=== PATIENT | female | born 1975 | race Caucasian/White ===

== ENCOUNTER 2017-02-14 12:32 | Observation (INO) | payer MEDICAID, SELFPAY ==
[2017-02-14] VITALS (8 sets, daily range): BP systolic 85–143; BP diastolic 56–104; PULSE 67–84; RESP 16–20; TEMP 36.5–37; O2SAT 99–100; BMI 19.0; BMI 19.1
--- NOTE | 2017-02-14 14:02 | ED.VISSUMM ---
- ER Visit Summary Date of Service: 02/14/17 Chief Complaint: Sent from [facility] for medical clearance History of Present Illness: The patient is a 41 F history of IV drug use who presents because of wound to the lateral proximal right arm. Patient states this is secondary to IV drug use. She states she put a napkin on the wound which then broke down. She presently denies fever, chills or night sweats. She denies drainage from the area. She denies any symptoms whatsoever Physical Examination: She has a large area of skin breakdown that is healing by secondary intention. There is granulation tissue noted which is dry. There is no warmth, induration, fluctuance, lymphangitis or axillary lymphadenopathy. Heart is regular with a normal S1 and S2. There is no murmur, gallop or rub. Lungs are clear to auscultation with good movement of air bilaterally. There is no egophony. Breath sounds are symmetric. Test Results: No tests were obtained, nor were any tests indicated Emergency Department Course and Treatment: Shari from [facility] was contacted as requested by triage note. She states she will get patient and take her to [facility] for detox Treatment Plan: Medically cleared for inpatient treatment of IV drug use Disposition: Discharge from ER to [facility] Impression: 1. Wound right arm healing by secondary intention without evidence of infection 2. History of IV drug use ED Disposition - Plan for ED Patient: Disposition: Home or Assisted Living Chief Complaint: Wound Check Instructions: ED Screening Exam Medical Nonurgent Referrals: Care Physician,No Primary [Primary Care Provider] -
--- NOTE | 2017-02-14 14:07 | ED.DCSUM_ITS ---
- ER Visit Summary Date of Service: 02/14/17 Chief Complaint: Sent from [facility] for medical clearance History of Present Illness: The patient is a 41 F history of IV drug use who presents because of wound to the lateral proximal right arm. Patient states this is secondary to IV drug use. She states she put a napkin on the wound which then broke down. She presently denies fever, chills or night sweats. She denies drainage from the area. She denies any symptoms whatsoever Physical Examination: She has a large area of skin breakdown that is healing by secondary intention. There is granulation tissue noted which is dry. There is no warmth, induration, fluctuance, lymphangitis or axillary lymphadenopathy. Heart is regular with a normal S1 and S2. There is no murmur, gallop or rub. Lungs are clear to auscultation with good movement of air bilaterally. There is no egophony. Breath sounds are symmetric. Test Results: No tests were obtained, nor were any tests indicated Emergency Department Course and Treatment: Shrai from [facility] was contacted as requested by triage note. She states she will get patient and take her to [facility] for detox Treatment Plan: Medically cleared for inpatient treatment of IV drug use Disposition: Discharge from ER to [facility] Impression: 1. Wound right arm healing by secondary intention without evidence of infection 2. History of IV drug use ED Disposition - Plan for ED Patient: Disposition: Home or Assisted Living Chief Complaint: Wound Check Instructions: ED Screening Exam Medical Nonurgent Referrals: Care Physician,No Primary [Primary Care Provider] -
[2017-02-14] MEDS: Buprenorphine HCl 2 MG TAB.SUBL SL (16:58)
[2017-02-14] MEDS: chlordiazePOXIDE 25 MG Capsule PO ×2 (16:59→20:08)
[2017-02-14] MEDS: cloNIDine HCl 0.1 MG Tablet 0.2 MG PO (17:01)
[2017-02-14] MEDS: Carbidopa/Levodopa 25/100 Tablet PO (18:40)
[2017-02-14] MEDS: QUEtiapine 25 MG Tablet PO (18:40)
[2017-02-14] MEDS: Methocarbamol 750 MG Tablet PO (18:40)
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
[2017-02-15 00:20] VITALS: BP 83/54; PULSE 69; RESP 16; TEMP 36.6
[2017-02-15] MEDS: chlordiazePOXIDE 25 MG Capsule PO ×5 (00:22→21:39)
[2017-02-15] MEDS: Buprenorphine HCl 2 MG TAB.SUBL SL ×4 (00:22→23:35)
[2017-02-15 04:00] VITALS: BP 86/55; PULSE 73; RESP 16; TEMP 36.4
[2017-02-15] MEDS: Methocarbamol 750 MG Tablet PO ×4 (04:06→21:39)
[2017-02-15] MEDS: Carbidopa/Levodopa 25/100 Tablet PO ×2 (04:06→15:57)
[2017-02-15] MEDS: Ondansetron ODT 4 MG Tablet PO (04:06)
[2017-02-15 09:10] VITALS: BP 93/61; PULSE 66; RESP 18; TEMP 36.8
--- NOTE | 2017-02-15 09:32 | PCM.PROGNOTE ---
Subjective: She is feeling well this morning. C/O toothache. - Physical Exam General: Alert, Oriented x3, Cooperative, No apparent distress HEENT: Atraumatic, Normocephalic Oral: Moist Mucosa, No Gingival or Mucosal Lesions/ Ulcerations Neck: Supple, No JVD Lungs: Clear to auscultation, Normal air movement, No rhonchi, No wheeze, No rales Cardiovascular: Regular rate, Regular Rhythm, Normal S1, Normal S2, No murmurs Abdomen: Bowel Sounds Present, Soft, Non Tender, Non-Distended, No Hepato-splenomegaly Extremities: No clubbing, No cyanosis, No edema Skin: Ulcer/ Wound - triangular full thickness skin loss at right upper arm atnerolaterally, 5 x 3 cm. Extensive scarring surrounding area. Left upper arm with no ulceration, but has extensive scarring in the same level. Musculoskeletal: No Tenderness to Palpation of Joints or Extremities, Cachexia, Muscle Wasting Lymphatic: No Cervical, Supraclavicular, or Inguinal Adenopathy Neurological: Cranial nerves II-XII grossly intact, Neuro grossly intact Psych/Mental Status: Alert and oriented to time, place, person, mood and affect Vital Signs Temp Pulse Resp BP Pulse Ox 98.3 F 66 18 93/61 100 02/15/17 09:10 02/15/17 09:10 02/15/17 09:10 02/15/17 09:10 02/14/17 20:00 Oxygen Delivery Method Room Air Weight: 111 lb Body Mass Index (BMI) 19.0 Intake and Output for Last 24 Hours 02/13/17 02/14/17 02/15/17 23:59 23:59 23:59 Intake Total 300 800 Balance 300 800 Active Medications Acetaminophen (Tylenol) 650 mg PO Q4H PRN PRN PRN Reason: Temp>99.1F Last Admin: 02/15/17 09:34 Dose: 650 mg Buprenorphine HCl (Buprenorphine Hcl) 4 mg SL Q8H MIRYAM PRN Reason: Taper Stop: 02/17/17 19:59 Last Admin: 02/15/17 09:35 Dose: 4 mg Carbidopa/Levodopa (Sinemet) 1 tablet PO Q8H PRN PRN PRN Reason: RESTLESSNESS Last Admin: 02/15/17 04:06 Dose: 1 tablet Chlordiazepoxide (Librium) 25 mg PO Q6H PRN PRN PRN Reason: Mod-Sev Anxiety (score 2-3/3) Chlordiazepoxide (Librium) 25 mg PO Q4H [facility] Stop: 02/15/17 12:01 Last Admin: 02/15/17 09:35 Dose: 25 mg Clonidine (Catapres) 0.1 mg PO Q2H PRN PRN Reason: Hot/Cold Sweats or Anxiety Dicyclomine HCl (Bentyl) 20 mg PO Q6H PRN PRN PRN Reason: Abdomnial Discomfort Duloxetine HCl (Cymbalta) 30 mg PO DAILY [facility] Last Admin: 02/15/17 09:35 Dose: 30 mg Hydroxyzine Pamoate (Vistaril) 50 mg PO Q6H PRN PRN PRN Reason: Mild Anxiety (score 1/3) Influenza Virus Vaccine Quadrival (Fluarix/Fluzone) 0.5 ml IM .ONCE ONE Stop: 02/15/17 10:01 Last Admin: 02/15/17 09:35 Dose: 0.5 ml Lidocaine HCl (Xylocaine Viscous) 1 ml PO Q1H PRN PRN Reason: PAIN Loperamide HCl (Imodium) 2 - 4 mg PO UD PRN PRN Reason: LOOSE STOOLS Methocarbamol (Methocarbamol) 750 mg PO 4X/DAY PRN PRN Reason: Muscle Aches Last Admin: 02/15/17 09:35 Dose: 750 mg Nicotine (Nicoderm Cq (Pbkc)) 21 mg TRANSDERM. DAILY [facility] Last Admin: 02/15/17 09:36 Dose: 21 mg Ondansetron HCl (Zofran Odt) 4 mg PO Q6H PRN PRN PRN Reason: NAUSEA Last Admin: 02/15/17 04:06 Dose: 4 mg Quetiapine Fumarate (Seroquel) 25 mg PO Q6H PRN PRN PRN Reason: Moderate Anxiety (score 2/3) Last Admin: 02/14/17 18:40 Dose: 25 mg Trazodone HCl (Desyrel) 100 mg PO QHS [facility] Last Admin: 02/14/17 22:20 Dose: 100 mg Assessment/Plan The patient is a 41 year old F who was admitted into the medical stabilization program at [place] for acute opiate withdrawal. Patient uses injectable heroin since 2005, she has been through narcotics detox 4 times, the last time October 27 of this year. Patient last used heroin yesterday, she complained of muscle cramps, jitteriness, sweating, and nausea. She denied any chest pain or shortness of breath. #1 acute opioid withdrawal. patient was admitted into the medical stabilization program at [place], orders were placed per medical stabilization protocol orders #2 opioid addiction heroin #3 Full thickness skin loss, right upper arm. She had been skin / muscle popping (subcutaneous / intramuscular injection). Full thickness skin loss may occur with infection, or due to the type of substance i.e. cocaine or any possible abrasive chemical that used to to cut heroin with. She probably need skin graft in the future. Meanwhile, continue wound care. Consult wound care nurse. VTE prophylaxis: early ambulation. GI prophylaxis: Regular consistency meal. Patient is full code. Disposition: [facility] follow up.
[2017-02-15] MEDS: Acetaminophen 325 MG Tablet 650 MG PO ×3 (09:34→21:39)
[2017-02-15] MEDS: DULoxetine Hcl 30 MG Capsule PO (09:35)
--- NOTE | 2017-02-15 09:47 | PN_ITS ---
Subjective: She is feeling well this morning. C/O toothache. - Physical Exam General: Alert, Oriented x3, Cooperative, No apparent distress HEENT: Atraumatic, Normocephalic Oral: Moist Mucosa, No Gingival or Mucosal Lesions/ Ulcerations Neck: Supple, No JVD Lungs: Clear to auscultation, Normal air movement, No rhonchi, No wheeze, No rales Cardiovascular: Regular rate, Regular Rhythm, Normal S1, Normal S2, No murmurs Abdomen: Bowel Sounds Present, Soft, Non Tender, Non-Distended, No Hepato- splenomegaly Extremities: No clubbing, No cyanosis, No edema Skin: Ulcer/ Wound - triangular full thickness skin loss at right upper arm atnerolaterally, 5 x 3 cm. Extensive scarring surrounding area. Left upper arm with no ulceration, but has extensive scarring in the same level. Musculoskeletal: No Tenderness to Palpation of Joints or Extremities, Cachexia, Muscle Wasting Lymphatic: No Cervical, Supraclavicular, or Inguinal Adenopathy Neurological: Cranial nerves II-XII grossly intact, Neuro grossly intact Psych/Mental Status: Alert and oriented to time, place, person, mood and affect Vital Signs Temp Pulse Resp BP Pulse Ox 98.3 F 66 18 93/61 100 02/15/17 09:10 02/15/17 09:10 02/15/17 09:10 02/15/17 09:10 02/14/17 20:00 Oxygen Delivery Method Room Air Weight: 111 lb Body Mass Index (BMI) 19.0 Intake and Output for Last 24 Hours 02/13/17 02/14/17 02/15/17 23:59 23:59 23:59 Intake Total 300 800 Balance 300 800 Active Medications Acetaminophen (Tylenol) 650 mg PO Q4H PRN PRN PRN Reason: Temp>99.1F Last Admin: 02/15/17 09:34 Dose: 650 mg Buprenorphine HCl (Buprenorphine Hcl) 4 mg SL Q8H [facility] PRN Reason: Taper Stop: 02/17/17 19:59 Last Admin: 02/15/17 09:35 Dose: 4 mg Carbidopa/Levodopa (Sinemet) 1 tablet PO Q8H PRN PRN PRN Reason: RESTLESSNESS Last Admin: 02/15/17 04:06 Dose: 1 tablet Chlordiazepoxide (Librium) 25 mg PO Q6H PRN PRN PRN Reason: Mod-Sev Anxiety (score 2-3/3) Chlordiazepoxide (Librium) 25 mg PO Q4H [facility] Stop: 02/15/17 12:01 Last Admin: 02/15/17 09:35 Dose: 25 mg Clonidine (Catapres) 0.1 mg PO Q2H PRN PRN Reason: Hot/Cold Sweats or Anxiety Dicyclomine HCl (Bentyl) 20 mg PO Q6H PRN PRN PRN Reason: Abdomnial Discomfort Duloxetine HCl (Cymbalta) 30 mg PO DAILY [facility] Last Admin: 02/15/17 09:35 Dose: 30 mg Hydroxyzine Pamoate (Vistaril) 50 mg PO Q6H PRN PRN PRN Reason: Mild Anxiety (score 1/3) Influenza Virus Vaccine Quadrival (Fluarix/Fluzone) 0.5 ml IM .ONCE ONE Stop: 02/15/17 10:01 Last Admin: 02/15/17 09:35 Dose: 0.5 ml Lidocaine HCl (Xylocaine Viscous) 1 ml PO Q1H PRN PRN Reason: PAIN Loperamide HCl (Imodium) 2 - 4 mg PO UD PRN PRN Reason: LOOSE STOOLS Methocarbamol (Methocarbamol) 750 mg PO 4X/DAY PRN PRN Reason: Muscle Aches Last Admin: 02/15/17 09:35 Dose: 750 mg Nicotine (Nicoderm Cq (Pbkc)) 21 mg TRANSDERM. DAILY [facility] Last Admin: 02/15/17 09:36 Dose: 21 mg Ondansetron HCl (Zofran Odt) 4 mg PO Q6H PRN PRN PRN Reason: NAUSEA Last Admin: 02/15/17 04:06 Dose: 4 mg Quetiapine Fumarate (Seroquel) 25 mg PO Q6H PRN PRN PRN Reason: Moderate Anxiety (score 2/3) Last Admin: 02/14/17 18:40 Dose: 25 mg Trazodone HCl (Desyrel) 100 mg PO QHS [facility] Last Admin: 02/14/17 22:20 Dose: 100 mg Assessment/Plan The patient is a 41 year old F who was admitted into the medical stabilization program at [facility] for acute opiate withdrawal. Patient uses injectable heroin since 2005, she has been through narcotics detox 4 times , the last time October 27 of this year. Patient last used heroin yesterday, she complained of muscle cramps, jitteriness, sweating, and nausea. She denied any chest pain or shortness of breath. #1 acute opioid withdrawal. patient was admitted into the medical stabilization program at [facility], orders were placed per medical stabilization protocol orders #2 opioid addiction heroin #3 Full thickness skin loss, right upper arm. She had been skin / muscle popping (subcutaneous / intramuscular injection). Full thickness skin loss may occur with infection, or due to the type of substance i.e. cocaine or any possible abrasive chemical that used to to cut heroin with. She probably need skin graft in the future. Meanwhile, continue wound care. Consult wound care nurse. VTE prophylaxis: early ambulation. GI prophylaxis: Regular consistency meal. Patient is full code. Disposition: [facility] follow up.
--- NOTE | 2017-02-15 10:30 | NURSING ---
wound photo: right upper arm
[2017-02-15 15:54] VITALS: BP 90/56; PULSE 67; RESP 18; TEMP 36.4
[2017-02-15] MEDS: Dicyclomine 10 MG Capsule 20 MG PO (16:00)
[2017-02-15] MEDS: QUEtiapine 25 MG Tablet PO (21:39)
[2017-02-15 21:41] VITALS: BP 90/51; PULSE 60; RESP 18; TEMP 36.4
[2017-02-16 08:48] VITALS: BP 104/54; PULSE 60; RESP 18; TEMP 36.4
[2017-02-16] MEDS: Methocarbamol 750 MG Tablet PO ×3 (09:01→23:39)
[2017-02-16] MEDS: DULoxetine Hcl 30 MG Capsule PO (09:01)
[2017-02-16] MEDS: Carbidopa/Levodopa 25/100 Tablet PO ×2 (09:01→23:38)
[2017-02-16] MEDS: Buprenorphine HCl 2 MG TAB.SUBL SL ×2 (09:01→20:56)
[2017-02-16] MEDS: Acetaminophen 325 MG Tablet 650 MG PO ×2 (09:01→14:46)
[2017-02-16 14:37] VITALS: BP 97/65; PULSE 74; RESP 20; TEMP 36.7
[2017-02-16] MEDS: chlordiazePOXIDE 25 MG Capsule PO (14:45)
[2017-02-16] MEDS: QUEtiapine 25 MG Tablet PO ×2 (14:45→23:38)
[2017-02-16] MEDS: Dicyclomine 10 MG Capsule 20 MG PO (14:52)
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
--- NOTE | 2017-02-16 16:57 | PCM.PROGNOTE ---
Subjective: She feels well today. No complains. Objective: - Physical Exam General: Alert, Oriented x3, Cooperative, No apparent distress HEENT: Atraumatic, Normocephalic Oral: Moist Mucosa, No Gingival or Mucosal Lesions/ Ulcerations Neck: Supple, No JVD Lungs: Clear to auscultation, Normal air movement, No rhonchi, No wheeze, No rales Cardiovascular: Regular rate, Regular Rhythm, Normal S1, Normal S2, No murmurs Abdomen: Bowel Sounds Present, Soft, Non Tender, Non-Distended, No Hepato-splenomegaly Extremities: No clubbing, No cyanosis, No edema Skin: Ulcer/ Wound - triangular full thickness skin loss at right upper arm atnerolaterally, 5 x 3 cm. Extensive scarring surrounding area. Left upper arm with no ulceration, but has extensive scarring in the same level. Musculoskeletal: No Tenderness to Palpation of Joints or Extremities, Cachexia, Muscle Wasting Lymphatic: No Cervical, Supraclavicular, or Inguinal Adenopathy Neurological: Cranial nerves II-XII grossly intact, Neuro grossly intact Psych/Mental Status: Alert and oriented to time, place, person, mood and affect - Physical Exam Vital Signs Temp Pulse Resp BP Pulse Ox 98.0 F 74 20 97/65 100 02/16/17 14:37 02/16/17 14:37 02/16/17 14:37 02/16/17 14:37 02/14/17 20:00 Oxygen Delivery Method Room Air Weight: 111 lb 0.009 oz Body Mass Index (BMI) 19.0 Intake and Output for Last 24 Hours 02/14/17 02/15/17 02/16/17 23:59 23:59 23:59 Intake Total 300 800 Balance 300 800 Assessment/Plan The patient is a 41 year old F who was admitted into the medical stabilization program at [facility] for acute opiate withdrawal. Patient uses injectable heroin since 2005, she has been through narcotics detox 4 times, the last time October 27 of this year. Patient last used heroin yesterday, she complained of muscle cramps, jitteriness, sweating, and nausea. She denied any chest pain or shortness of breath. #1 acute opioid withdrawal. patient was admitted into the medical stabilization program at [facility], orders were placed per medical stabilization protocol orders Anticipated discharge date on 02/17/17. She will go to [facility] outpatient at [place] right after discharge. #2 opioid addiction heroin #3 Full thickness skin loss, right upper arm. She had been skin / muscle popping (subcutaneous / intramuscular injection). Full thickness skin loss may occur with infection, or due to the type of substance i.e. cocaine or any possible abrasive chemical that used to to cut heroin with. She probably need skin graft in the future. Meanwhile, continue wound care. Consult wound care nurse. VTE prophylaxis: early ambulation. GI prophylaxis: Regular consistency meal. Patient is full code. Disposition: [facility] follow up.
[2017-02-16 20:59] VITALS: BP 97/51; PULSE 73; RESP 18; TEMP 37.1
--- NOTE | 2017-02-16 23:40 | NURSING ---
methocarbamol given for pain. sinement given for restlessness. seroquel given for anxiety.
[2017-02-17] MEDS: Methocarbamol 750 MG Tablet PO (05:15)
[2017-02-17 05:16] VITALS: BP 92/53; PULSE 73; RESP 18; TEMP 36.4
[2017-02-17] MEDS: DULoxetine Hcl 30 MG Capsule PO (07:49)
[2017-02-17] MEDS: Buprenorphine HCl 2 MG TAB.SUBL SL (07:49)
[2017-02-17] MEDS: chlordiazePOXIDE 25 MG Capsule PO (07:49)
--- NOTE | 2017-02-17 11:19 | PCM.DC ---
- Discharge Diagnoses Reason(s) for Visit for Discharge Instructions: Heroin withdrawal You will use the following diet at home:: No restrictions Instructions: ED Screening Exam Medical Nonurgent Allergies/Adverse Reactions: Allergies ibuprofen Allergy (Verified 02/14/17 12:36) Hives morphine Allergy (Verified 02/14/17 12:36) Hives Medications to take at Discharge Duloxetine Hcl [Cymbalta] 30 mg PO DAILY #30 02/17/17 Trazodone HCl 100 mg PO QHS #30 02/17/17 The following prescriptions were given: Duloxetine Hcl [Cymbalta] 30 mg PO DAILY #30 Trazodone HCl 100 mg PO QHS #30 Primary Care Physician: Care Physician,No Primary [Primary Care Provider] - Please follow up with your Primary Care Physician in: Need to establish PCP. Please Follow Up With: [facility] When: Today.
--- NOTE | 2017-02-17 11:24 | PCM.DC.SUM ---
Discharge Date and Diagnosis - Problem List Patient Problems: Active and Suspected Problems Opiate withdrawal (Acute) Skin ulcer (Acute) Date of Admission: 02/14/17 Date of Discharge: 02/17/17 - Primary Discharge Diagnosis Acute Opioid withdrawal. Opioid addiction with heroin. Full thickness skin loss right upper arm. Hospital Course and Treatment Imaging Results: None. Consultations 02/15/17 09:46 Consult: Onc/Wound/director of physical security Routine Comment: Reason for Consult:: right arm wound [facility]. Operations: None Procedures: None Summary of Care Provided: The patient is a 41 year old F who was admitted into the medical stabilization program at [facility] for acute opiate withdrawal. Patient uses injectable heroin since 2005, she has been through narcotics detox 4 times, the last time October 27 of this year. Patient last used heroin yesterday, she complained of muscle cramps, jitteriness, sweating, and nausea. She denied any chest pain or shortness of breath. #1 acute opioid withdrawal. patient was admitted into the medical stabilization program at [facility], orders were placed per medical stabilization protocol orders Anticipated discharge date on 02/17/17. She will go to [facility] outpatient at [place] right after discharge. #2 opioid addiction heroin #3 Full thickness skin loss, right upper arm. She had been skin / muscle popping (subcutaneous / intramuscular injection). Full thickness skin loss may occur with infection, or due to the type of substance i.e. cocaine or any possible abrasive chemical that used to to cut heroin with. She probably need skin graft in the future. Meanwhile, continue wound care. Consult wound care nurse. VTE prophylaxis: early ambulation. GI prophylaxis: Regular consistency meal. Patient is full code. Disposition: [facility] Discharge Diet: No Restrictions Home Medications: Medications to take at Discharge Duloxetine Hcl [Cymbalta] 30 mg PO DAILY #30 02/17/17 Trazodone HCl 100 mg PO QHS #30 02/17/17 Following Prescrptions Were Given to Patient: Duloxetine Hcl [Cymbalta] 30 mg PO DAILY #30 Trazodone HCl 100 mg PO QHS #30 Primary Care Physician: Care Physician,No Primary [Primary Care Provider] - Please follow up with your Primary Care Physician in: Need to establish PCP. Please Follow Up With: [facility] When: Today. Patient Instructions: ED Screening Exam Medical Nonurgent Disposition: [facility] Patient Condition:: Good Meaningful Use Info Meaningful Use Diagnoses (Choose all that apply): None applicable
--- NOTE | 2017-02-17 11:36 | DS.PCM_ITS ---
Discharge Date and Diagnosis - Problem List Patient Problems: Active and Suspected Problems Opiate withdrawal (Acute) Skin ulcer (Acute) Date of Admission: 02/14/17 Date of Discharge: 02/17/17 - Primary Discharge Diagnosis Acute Opioid withdrawal. Opioid addiction with heroin. Full thickness skin loss right upper arm. Hospital Course and Treatment Imaging Results: None. Consultations 02/15/17 09:46 Consult: Onc/Wound/business services officer Routine Comment: Reason for Consult:: right arm wound [facility]. Operations: None Procedures: None Summary of Care Provided: The patient is a 41 year old F who was admitted into the medical stabilization program at [facility] for acute opiate withdrawal. Patient uses injectable heroin since 2005, she has been through narcotics detox 4 times , the last time October 27 of this year. Patient last used heroin yesterday, she complained of muscle cramps, jitteriness, sweating, and nausea. She denied any chest pain or shortness of breath. #1 acute opioid withdrawal. patient was admitted into the medical stabilization program at [facility], orders were placed per medical stabilization protocol orders Anticipated discharge date on 02/17/17. She will go to [facility] outpatient at [place] right after discharge. #2 opioid addiction heroin #3 Full thickness skin loss, right upper arm. She had been skin / muscle popping (subcutaneous / intramuscular injection). Full thickness skin loss may occur with infection, or due to the type of substance i.e. cocaine or any possible abrasive chemical that used to to cut heroin with. She probably need skin graft in the future. Meanwhile, continue wound care. Consult wound care nurse. VTE prophylaxis: early ambulation. GI prophylaxis: Regular consistency meal. Patient is full code. Disposition: [facility] Discharge Diet: No Restrictions Home Medications: Medications to take at Discharge Duloxetine Hcl [Cymbalta] 30 mg PO DAILY #30 02/17/17 Trazodone HCl 100 mg PO QHS #30 02/17/17 Following Prescrptions Were Given to Patient: Duloxetine Hcl [Cymbalta] 30 mg PO DAILY #30 Trazodone HCl 100 mg PO QHS #30 Primary Care Physician: Care Physician,No Primary [Primary Care Provider] - Please follow up with your Primary Care Physician in: Need to establish PCP. Please Follow Up With: [facility] When: Today. Patient Instructions: ED Screening Exam Medical Nonurgent Disposition: [facility] Patient Condition:: Good Meaningful Use Info Meaningful Use Diagnoses (Choose all that apply): None applicable
[2017-02-17] MEDS: Acetaminophen 325 MG Tablet 650 MG PO (11:51)
[2017-02-17 12:18] VITALS: BP 111/76; PULSE 68; RESP 16; TEMP 36.3
== END 2017-02-17 12:24 | disposition home or self-care (01) | DRG 772 ==
LOC: ED 07-09 10:25 → MS2 07-09 10:25
PROVIDERS: Admitting Provider Internal Medicine; Emergency Provider Emergency Medicine; Visit Provider Hospitalist
DX: F11.23 Opioid dependence with withdrawal (principal); L98.491 Non-pressure chronic ulcer of skin of other sites limited to breakdown of skin; F17.210 Nicotine dependence, cigarettes, uncomplicated; Z23 Encounter for immunization
CPT/HCPCS: 97802; 99218; 99282; 99406; 90686; G0378; G0379

== ENCOUNTER 2019-12-04 10:36 | Observation (INO) | payer MEDICAID, SELFPAY ==
[2019-12-04 10:38] VITALS: BP 129/76; PULSE 71; RESP 18; TEMP 36.6; O2SAT 96; BMI 24.9
--- NOTE | 2019-12-04 11:17 | EKG12_ITS ---
Test Reason : DETOX Blood Pressure : / mmHG Vent. Rate : 061 BPM Atrial Rate : 061 BPM P-R Int : 154 ms QRS Dur : 078 ms QT Int : 440 ms P-R-T Axes : 080 082 074 degrees QTc Int : 442 ms Normal sinus rhythm Possible Left atrial enlargement Borderline ECG Confirmed by JERRY PLASENCIA, KARLA ([id number]), newspaper managing editor DA DURAN ([id number]) on 12/08/2019 10:59:18 AM Referred By: ZUHAIR/KEISHA Confirmed By:KARLA EDWARDS MD
[2019-12-04 12:03] LABS: Absolute Neutrophil Count 4.9 X10^3/uL (2.0-7.7); Basophil# 0.03 X10^3/uL; Basophil% 0.4 % (0-1); Hematocrit 41.6 % (37-47); Hemoglobin 13.7 g/dL (12.0-15.0); Mean Corp Hgb Conc 32.9 g/dL (32-36); Mean Corpuscular Hgb 30.8 pg (27.0-32.0); Mean Corpuscular Volume 93.5 fL (81-99); Mean Platelet Vol. 11.5 fl (6.2-12.0); Monocyte# 0.65 X10^3/uL; Monocyte% 9.3 % (0-10); NRBC Flagged by Analyzer 0 % (0-5); POSITIVE COUNT YES; Platelet Count 88 K/mm3 (150-450); RBC Distribution Width CV 13.1 % (11.6-14.6); RBC Distribution Width SD 44.6 fl (35.1-43.9); Red Blood Count 4.45 M/mm3 (4.2-5.4)
[2019-12-04 12:05] LABS: Differential Indicated SCAN CRITERIA MET
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
[2019-12-04 12:15] LABS: Alcohol, Blood (Medical)-Serum < 3.0 mg/dL
[2019-12-04 12:22] LABS: ALB/GLOB Ratio 0.8 RATIO (0.9-2.4); AST(SGOT) 29 U/L (15-37); Alanine Aminotransfer ALT/SGPT 25 U/L (13-56); Albumin, Serum 3.4 g/dL (3.2-5.0); Alkaline Phosphatase 65 U/L (45-117); Anion Gap 5 (5-15); BUN 19 mg/dL (7-18); BUN/Creat Ratio 25.3 RATIO (10-20); Calcium,Total 8.1 mg/dL (8.5-10.1); Chloride 105 mmol/L (98-107); Creatinine, Serum 0.75 mg/dL (0.55-1.02); EST Glomerular Filtration Rate 88 mL/min (>60); Est Glom Filt Rate - Afr Amer 107 mL/min (>60); Estimated Creatinine Clearance 80.94 ml/min; Globulin 4.2 g/dL (2.2-4.2); Glucose 123 mg/dL (74-106); Potassium 4.2 mmol/L (3.5-5.1); Protein, Total 7.6 g/dL (6.4-8.2); Sodium Level 133 mmol/L (136-145)
[2019-12-04] MEDS: Doxycycline 100 MG CAPSULE PO (12:32)
[2019-12-04 12:44] LABS: Platelet Estimate MOD DEC (ADEQ)
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
[2019-12-04 13:27] VITALS: BP 116/79; PULSE 66; PULSE 67; RESP 15; TEMP 36.4; O2SAT 98; O2SAT 99
[2019-12-04 13:39] LABS: Amphetamine Urine VISTA NEGATIVE (<1000 ng/mL); Barbiturate Urine VISTA NEGATIVE (< 200 ng/mL); Benzodiazepine Urine VISTA NEGATIVE (< 200 ng/mL); Cocaine Urine VISTA POSITIVE (< 300 ng/mL); Ecstacy Urine VISTA NEGATIVE (< 500 ng/mL); Methadone Urine VISTA NEGATIVE (< 300 ng/mL); PCP Urine VISTA NEGATIVE (< 25 ng/mL); THC Urine VISTA NEGATIVE (< 50 ng/mL); Vista UDS pH Range 6
[2019-12-04 14:15] VITALS: BP 127/82; PULSE 63; RESP 16; TEMP 36.7; O2SAT 98; BMI 25.9
[2019-12-04 14:34] VITALS: BMI 25.8
[2019-12-04] MEDS: busPIRone 5 MG Tablet PO ×2 (15:29→22:37)
[2019-12-04] MEDS: cloNIDine HCl 0.1 MG Tablet PO (18:07)
[2019-12-04] MEDS: Methocarbamol 750 MG Tablet 1500 MG PO (18:07)
[2019-12-04] MEDS: Buprenorphine HCl 2 MG TAB.SUBL SL (18:08)
[2019-12-04] MEDS: hydrOXYzine PAM 25 MG Capsule 50 MG PO (18:08)
[2019-12-04] MEDS: Ondansetron 8 MG Tablet PO (19:40)
[2019-12-04 19:43] VITALS: BP 138/85; PULSE 71; RESP 20; TEMP 36.3; O2SAT 99
[2019-12-04] MEDS: Acetaminophen 500 MG Tablet PO (19:48)
[2019-12-04] MEDS: Dicyclomine 10 MG Capsule 20 MG PO (19:48)
[2019-12-04] MEDS: Gabapentin 300 MG Capsule PO (19:48)
[2019-12-04 22:33] VITALS: BP 128/68; PULSE 61; RESP 18; TEMP 36.9; O2SAT 98
[2019-12-04] MEDS: traZODone 100 MG Tablet 150 MG PO (22:36)
[2019-12-04] MEDS: QUEtiapine 25 MG Tablet PO (22:37)
[2019-12-04] MEDS: Venlafaxine XR 37.5 MG Capsule PO (22:37)
[2019-12-04] MEDS: Topiramate 50 MG Tablet PO (22:37)
[2019-12-04 22:50] VITALS: PULSE 61; RESP 18; O2SAT 98
[2019-12-05] MEDS: Buprenorphine HCl 2 MG TAB.SUBL SL ×3 (02:00→17:24)
[2019-12-05 02:03] VITALS: BP 96/50; PULSE 69; RESP 18; TEMP 36.9; O2SAT 95
[2019-12-05 05:30] VITALS: BP 131/76; PULSE 93; RESP 18; TEMP 36.8; O2SAT 98
[2019-12-05] MEDS: cloNIDine HCl 0.1 MG Tablet PO ×2 (05:38→19:47)
[2019-12-05] MEDS: Dicyclomine 10 MG Capsule 20 MG PO (05:38)
[2019-12-05] MEDS: Methocarbamol 750 MG Tablet 1500 MG PO (05:38)
[2019-12-05] MEDS: Gabapentin 300 MG Capsule PO ×2 (05:38→19:47)
[2019-12-05] MEDS: Ondansetron 8 MG Tablet PO ×2 (05:42→20:23)
--- NOTE | 2019-12-05 07:25 | PCM.PN.HOSP ---
Patient Problems: Active and Suspected Problems Opiate withdrawal (Acute) Reason for Visit: Acute opioid withdrawal Subjective: Patient is a 44-year-old lady admitted with acute opioid withdrawal. Patient admitted to regular nursing floor currently undergoing medical stabilization. Patient remains in the ICU. Patient remains on BiPAP. Patient desaturates when BiPAP was taken off. Objective: GENERAL: Appears restless HEENT: Atraumatic; EYES; Anicteric, Normal Conjunctiva NECK; supple, normal thyroid, RESPIRATORY: Diminished to auscultation CARDIOVASCULAR: Regular S1 S2, GI: soft, normoactive bowel sounds, : No Renal angle tenderness; EXTREMITIES: Ulcers on the left lateral upper thigh with dry to her dressing MUSCULOSKELETAL: no muscle waisting NEURO: Awake; no lateralizing signs. SKIN: Scarring of both upper extremities PSYCH; Flat affect Vitals/I&O's: Vital Signs Temp Pulse Resp BP Pulse Ox 98.3 F 93 18 131/76 H 98 12/05/19 05:30 12/05/19 05:30 12/05/19 05:30 12/05/19 05:30 12/05/19 05:30 Oxygen Delivery Method Room Air Weight: 68.311 kg Body Mass Index (BMI) 25.8 Intake and Output for Last 24 Hours 12/03/19 12/04/19 12/05/19 23:59 23:59 23:59 Intake Total 350 / 650 500 / 500 Output Total 300 / 300 Balance 350 / 350 200 / 200 Laboratory Results 12/04/19 11:48: WBC 7.0, RBC 4.45, Hgb 13.7, Hct 41.6, MCV 93.5, MCH 30.8, MCHC 32.9, RDW Std Deviation 44.6 H, RDW Coeff of Luís 13.1, Plt Count 88 L, MPV 11.5, Immature Gran % (Auto) 0.300, Neut % (Auto) 70.0, Lymph % (Auto) 20.0, Zavala % (Auto) 9.3, Eos % (Auto) 0.0, Baso % (Auto) 0.4, Absolute Neuts (auto) 4.9, Absolute Lymphs (auto) 1.40, Nucleated RBC % 0, Platelet Estimate MOD 12/04/19 11:48: Sodium 133 L, Potassium 4.2, Chloride 105, Carbon Dioxide 23.0, Anion Gap 5, BUN 19 H, Creatinine 0.75, Estim Creat Clear Calc 80.94, Est GFR (MDRD) Af Amer 107, Est GFR (MDRD) Non-Af 88, BUN/Creatinine Ratio 25.3 H, Glucose 123 H, Calcium 8.1 L, Total Bilirubin 0.40, AST 29, ALT 25, Alkaline Phosphatase 65, Total Protein 7.6, Albumin 3.4, Globulin 4.2, Albumin/Globulin Ratio 0.8 L, TSH 0.90 12/04/19 11:48: Ethyl Alcohol < 3.0 12/04/19 12:04: Urine Opiates Screen NEGATIVE, Urine Methadone Screen NEGATIVE, Ur Barbiturates Screen NEGATIVE, Ur Phencyclidine Scrn NEGATIVE, Ur Amphetamines Screen NEGATIVE, U Methamphetamin-MDMA NEGATIVE, U Benzodiazepines Scrn NEGATIVE, Urine Cocaine Screen POSITIVE H, U Cannabinoids Screen NEGATIVE, Ur Drug Screen Comment Current Medications Acetaminophen (Tylenol) 500 mg PO Q4H PRN PRN PRN Reason: Temp > 100.4 F Last Admin: 12/04/19 19:48 Dose: 500 mg Documented by: Al Hydroxide/Mg Hydroxide (Mylanta Ii) 30 ml PO Q6H PRN PRN PRN Reason: dyspesia Albuterol Sulfate (Ventolin Aerosols) 2.5 mg INHALATION Q6HWA.RT [facility] Last Admin: 12/04/19 18:57 Dose: Not Given Documented by: Bisacodyl (Dulcolax) 10 mg RECTAL DAILY PRN PRN Reason: Constipation Budesonide (Pulmicort Aerosol) 0.5 mg INHALATION Q12H.RT [facility] Last Admin: 12/04/19 18:57 Dose: Not Given Documented by: Buprenorphine HCl (Buprenorphine Hcl) 4 mg SL Q8H [facility]; Taper Stop: 12/07/19 17:59 Last Admin: 12/05/19 02:00 Dose: 4 mg Documented by: Buspirone HCl (Buspar) 5 mg PO BID [facility] Last Admin: 12/04/19 22:37 Dose: 5 mg Documented by: Clonidine (Catapres) 0.1 mg PO Q8H PRN PRN PRN Reason: RESTLESSNESS Last Admin: 12/05/19 05:38 Dose: 0.1 mg Documented by: Dicyclomine HCl (Bentyl) 20 mg PO Q6H PRN PRN PRN Reason: Abdominal Discomfort Last Admin: 12/05/19 05:38 Dose: 20 mg Documented by: Gabapentin (Neurontin) 300 mg PO Q8H PRN PRN PRN Reason: moderate to severe anxiety Last Admin: 12/05/19 05:38 Dose: 300 mg Documented by: Hydroxyzine Pamoate (Vistaril Pamoate Capsule) 50 mg PO Q6H PRN PRN PRN Reason: mild anxiety Last Admin: 12/04/19 18:08 Dose: 50 mg Documented by: Loperamide HCl (Imodium) 2 mg PO Q4H PRN PRN PRN Reason: LOOSE STOOLS Methocarbamol (Methocarbamol) 1,500 mg PO Q6H PRN PRN PRN Reason: MUSCLE SPASM Last Admin: 12/05/19 05:38 Dose: 1,500 mg Documented by: Nicotine (Nicoderm Cq (Pbkc)) 21 mg TRANSDERM. DAILY [facility] Last Admin: 12/04/19 15:29 Dose: 21 mg Documented by: Nutritional Formula (Lactose Free) (Ensure Enlive) 120 ml PO 4X/DAY [facility] Last Admin: 12/04/19 22:41 Dose: Not Given Documented by: Ondansetron HCl (Zofran) 8 mg PO Q8H PRN PRN PRN Reason: NAUSEA Last Admin: 12/05/19 05:42 Dose: 8 mg Documented by: Quetiapine Fumarate (Seroquel) 25 mg PO QHS [facility] Last Admin: 12/04/19 22:37 Dose: 25 mg Documented by: Senna (Senokot) 2 tablet PO QHS PRN PRN PRN Reason: Constipation Topiramate (Topamax) 50 mg PO BID [facility] Last Admin: 12/04/19 22:37 Dose: 50 mg Documented by: Trazodone HCl (Desyrel) 150 mg PO QHS [facility] Last Admin: 12/04/19 22:36 Dose: 150 mg Documented by: Venlafaxine HCl (Effexor Xr) 37.5 mg PO BID [facility] Last Admin: 12/04/19 22:37 Dose: 37.5 mg Documented by: STROKE Vital Signs/Narrative: Vital Signs Temp Pulse Resp BP Pulse Ox 12/05/19 05:30 98.3 F 93 18 131/76 H 98 Medical Necessity - Tobacco Use Smoking Status: Current every day smoker Tobacco Use: Cigarettes Assessment/Plan All Active Problems Opiate withdrawal (Acute) Skin ulcer (Acute) Patient is a 44-year-old lady presented with acute opioid withdrawal 1. Acute opioid withdrawal Admitted for medical stabilization using Subutex in addition to symptomatic treatment -12/05/2019 patient remains significantly symptomatic. Currently on Subutex in addition to supportive medications for symptom management. 2. Skin infection ?From the site of patient's IV drug injection patient started on doxycycline p.o. 3. Tobacco dependence - Counseled on cessation, offered nicotine patch for tobacco cravings 4. DVT prophylaxis ?Low risk did encourage ambulation Inpatient E&M: 16809 [facility] Hosp L3
--- NOTE | 2019-12-05 09:33 | CASEMGMT ---
Social Work Note Pt is [facility] pt. ALEKSEY spoke with Pricila at [facility] and updated her that pt will need to be seen. Krista Bueno TREE WORKER, CUTTER OPERATOR BRICK
[2019-12-05 10:00] VITALS: BP 100/61; PULSE 73; RESP 16; TEMP 36.7; O2SAT 95
[2019-12-05] MEDS: Venlafaxine XR 37.5 MG Capsule PO ×2 (10:22→21:59)
[2019-12-05] MEDS: Topiramate 50 MG Tablet PO ×2 (10:22→21:59)
--- NOTE | 2019-12-05 14:34 | ADDICTION ---
This sports writer attempted to meet with patient in her room to conduct ASAM assessment and to begin discharge planning. Client was asleep upon this sports writer's arrival and roused enough to refuse to meet with this sports writer. She immediately returned to sleep. This sports writer will attempt to meet with patient on Sunday if she is still engaged with the RAMP program.
[2019-12-05] MEDS: busPIRone 5 MG Tablet PO ×2 (15:02→21:59)
[2019-12-05 16:00] VITALS: BP 114/75; PULSE 69; RESP 16; TEMP 36.7; O2SAT 95
[2019-12-05 19:38] VITALS: BP 117/74; PULSE 75; RESP 16; TEMP 36.6; O2SAT 95
[2019-12-05] MEDS: traZODone 100 MG Tablet 150 MG PO (21:59)
[2019-12-05] MEDS: QUEtiapine 25 MG Tablet PO (22:00)
[2019-12-06 01:45] VITALS: BP 95/61; PULSE 61; RESP 16; TEMP 36.7; O2SAT 93
[2019-12-06] MEDS: Buprenorphine HCl 2 MG TAB.SUBL SL ×3 (02:47→18:11)
--- NOTE | 2019-12-06 07:48 | PN_ITS ---
Patient Problems: Active and Suspected Problems Opiate withdrawal (Acute) Reason for Visit: Acute opioid withdrawal Subjective: Patient seen report some improvement in her overall condition Objective: GENERAL: Appears restless HEENT: Atraumatic; EYES; Anicteric, Normal Conjunctiva NECK; supple, normal thyroid, RESPIRATORY: Diminished to auscultation CARDIOVASCULAR: Regular S1 S2, GI: soft, normoactive bowel sounds, : No Renal angle tenderness; EXTREMITIES: Ulcers on the left lateral upper thigh with dry to her dressing MUSCULOSKELETAL: no muscle waisting NEURO: Awake; no lateralizing signs. SKIN: Scarring of both upper extremities PSYCH; Flat affect Vitals/I&O's: Vital Signs Temp Pulse Resp BP Pulse Ox 98.1 F 61 16 95/61 93 12/06/19 01:45 12/06/19 01:45 12/06/19 01:45 12/06/19 01:45 12/06/19 01:45 Oxygen Delivery Method Room Air Weight: 68.311 kg Body Mass Index (BMI) 25.8 Intake and Output for Last 24 Hours 12/04/19 12/05/19 12/06/19 23:59 23:59 23:59 Intake Total 350 / 650 500 / 500 Output Total 300 / 300 Balance 350 / 350 200 / 200 Current Medications Acetaminophen (Tylenol) 500 mg PO Q4H PRN PRN PRN Reason: Temp > 100.4 F Last Admin: 12/04/19 19:48 Dose: 500 mg Documented by: Al Hydroxide/Mg Hydroxide (Mylanta Ii) 30 ml PO Q6H PRN PRN PRN Reason: dyspesia Albuterol Sulfate (Ventolin Aerosols) 2.5 mg INHALATION Q6HWA.RT [facility] Last Admin: 12/06/19 07:00 Dose: Not Given Documented by: Bisacodyl (Dulcolax) 10 mg RECTAL DAILY PRN PRN Reason: Constipation Budesonide (Pulmicort Aerosol) 0.5 mg INHALATION Q12H.RT [facility] Last Admin: 12/06/19 07:00 Dose: Not Given Documented by: Buprenorphine HCl (Buprenorphine Hcl) 2 mg SL Q8H [facility]; Taper Stop: 12/07/19 17:59 Last Admin: 12/06/19 02:47 Dose: 2 mg Documented by: Buspirone HCl (Buspar) 5 mg PO BID [facility] Last Admin: 12/05/19 21:59 Dose: 5 mg Documented by: Clonidine (Catapres) 0.1 mg PO Q8H PRN PRN PRN Reason: RESTLESSNESS Last Admin: 12/05/19 19:47 Dose: 0.1 mg Documented by: Dicyclomine HCl (Bentyl) 20 mg PO Q6H PRN PRN PRN Reason: Abdominal Discomfort Last Admin: 12/05/19 05:38 Dose: 20 mg Documented by: Gabapentin (Neurontin) 300 mg PO Q8H PRN PRN PRN Reason: moderate to severe anxiety Last Admin: 12/05/19 19:47 Dose: 300 mg Documented by: Hydroxyzine Pamoate (Vistaril Pamoate Capsule) 50 mg PO Q6H PRN PRN PRN Reason: mild anxiety Last Admin: 12/04/19 18:08 Dose: 50 mg Documented by: Loperamide HCl (Imodium) 2 mg PO Q4H PRN PRN PRN Reason: LOOSE STOOLS Methocarbamol (Methocarbamol) 1,500 mg PO Q6H PRN PRN PRN Reason: MUSCLE SPASM Last Admin: 12/05/19 05:38 Dose: 1,500 mg Documented by: Nicotine (Nicoderm Cq (Pbkc)) 21 mg TRANSDERM. DAILY [facility] Last Admin: 12/05/19 10:31 Dose: 21 mg Documented by: Nutritional Formula (Lactose Free) (Ensure Enlive) 120 ml PO 4X/DAY [facility] Last Admin: 12/05/19 22:00 Dose: Not Given Documented by: Ondansetron HCl (Zofran) 8 mg PO Q8H PRN PRN PRN Reason: NAUSEA Last Admin: 12/05/19 20:23 Dose: 8 mg Documented by: Quetiapine Fumarate (Seroquel) 25 mg PO QHS [facility] Last Admin: 12/05/19 22:00 Dose: 25 mg Documented by: Senna (Senokot) 2 tablet PO QHS PRN PRN PRN Reason: Constipation Topiramate (Topamax) 50 mg PO BID [facility] Last Admin: 12/05/19 21:59 Dose: 50 mg Documented by: Trazodone HCl (Desyrel) 150 mg PO QHS [facility] Last Admin: 12/05/19 21:59 Dose: 150 mg Documented by: Venlafaxine HCl (Effexor Xr) 37.5 mg PO BID [facility] Last Admin: 12/05/19 21:59 Dose: 37.5 mg Documented by: Medical Necessity - Tobacco Use Smoking Status: Current every day smoker Tobacco Use: Cigarettes Assessment/Plan All Active Problems Opiate withdrawal (Acute) Skin ulcer (Acute) Patient is a 44-year-old lady presented with acute opioid withdrawal 1. Acute opioid withdrawal Admitted for medical stabilization using Subutex in addition to symptomatic treatment -12/05/2019 patient remains significantly symptomatic. Currently on Subutex in addition to supportive medications for symptom management. ?12/06/2019: Patient tolerating the Subutex protocol for her acute opioid withdrawal 2. Skin infection ?From the site of patient's IV drug injection patient started on doxycycline p.o. 3. Tobacco dependence - Counseled on cessation, offered nicotine patch for tobacco cravings 4. DVT prophylaxis ?Low risk did encourage ambulation Inpatient E&M: 79522 [facility] Hosp L2
[2019-12-06] MEDS: Topiramate 50 MG Tablet PO ×2 (09:57→21:59)
[2019-12-06] MEDS: Venlafaxine XR 37.5 MG Capsule PO ×2 (09:57→22:00)
[2019-12-06] MEDS: busPIRone 5 MG Tablet PO ×2 (09:57→21:59)
[2019-12-06 10:00] VITALS: BP 107/77; PULSE 61; RESP 18; TEMP 36.6; O2SAT 94
[2019-12-06] MEDS: Gabapentin 300 MG Capsule PO ×2 (10:08→18:19)
[2019-12-06] MEDS: Methocarbamol 750 MG Tablet 1500 MG PO ×2 (10:08→21:59)
[2019-12-06 14:54] VITALS: BP 113/76; PULSE 67; RESP 18; TEMP 37; O2SAT 98
[2019-12-06] MEDS: Doxycycline 100 MG CAPSULE PO (18:12)
[2019-12-06 19:51] VITALS: BP 112/74; PULSE 71; RESP 18; TEMP 36.6; O2SAT 97
[2019-12-06] MEDS: cloNIDine HCl 0.1 MG Tablet PO (20:01)
[2019-12-06] MEDS: traZODone 100 MG Tablet 150 MG PO (22:00)
[2019-12-06] MEDS: QUEtiapine 25 MG Tablet PO (22:02)
[2019-12-07 02:22] VITALS: BP 99/68; PULSE 70; RESP 18; TEMP 36.5; O2SAT 92
[2019-12-07] MEDS: Gabapentin 300 MG Capsule PO ×2 (02:30→15:27)
[2019-12-07] MEDS: Buprenorphine HCl 2 MG TAB.SUBL SL (05:31)
--- NOTE | 2019-12-07 07:22 | PCM.PN.HOSP ---
Patient Problems: Active and Suspected Problems Opiate withdrawal (Acute) Reason for Visit: Acute opioid withdrawal Subjective: Patient seen continues to improve. Plan is for patient to be discharged on 12/08/2019 with referral to [facility] as outpatient Objective: GENERAL: Appears restless HEENT: Atraumatic; EYES; Anicteric, Normal Conjunctiva NECK; supple, normal thyroid, RESPIRATORY: Diminished to auscultation CARDIOVASCULAR: Regular S1 S2, GI: soft, normoactive bowel sounds, : No Renal angle tenderness; EXTREMITIES: Ulcers on the left lateral upper thigh with dry to her dressing MUSCULOSKELETAL: no muscle waisting NEURO: Awake; no lateralizing signs. SKIN: Scarring of both upper extremities PSYCH; Flat affect Vitals/I&O's: Vital Signs Temp Pulse Resp BP Pulse Ox 97.7 F L 70 18 99/68 92 12/07/19 02:22 12/07/19 02:22 12/07/19 02:22 12/07/19 02:22 12/07/19 02:22 Oxygen Delivery Method Room Air Weight: 68.311 kg Body Mass Index (BMI) 25.8 Intake and Output for Last 24 Hours 12/05/19 12/06/19 12/07/19 23:59 23:59 23:59 Intake Total 500 / 500 900 / 900 1000 / 1000 Output Total 300 / 300 Balance 200 / 200 900 / 900 1000 / 1000 Current Medications Acetaminophen (Tylenol) 500 mg PO Q4H PRN PRN PRN Reason: Temp > 100.4 F Last Admin: 12/04/19 19:48 Dose: 500 mg Documented by: Al Hydroxide/Mg Hydroxide (Mylanta Ii) 30 ml PO Q6H PRN PRN PRN Reason: dyspesia Albuterol Sulfate (Ventolin Aerosols) 2.5 mg INHALATION Q6HWA.RT [facility] Last Admin: 12/06/19 19:14 Dose: Not Given Documented by: Bisacodyl (Dulcolax) 10 mg RECTAL DAILY PRN PRN Reason: Constipation Budesonide (Pulmicort Aerosol) 0.5 mg INHALATION Q12H.RT [facility] Last Admin: 12/06/19 19:14 Dose: Not Given Documented by: Buprenorphine HCl (Buprenorphine Hcl) 2 mg SL Q12H [facility]; Taper Stop: 12/07/19 17:59 Last Admin: 12/07/19 05:31 Dose: 2 mg Documented by: Buspirone HCl (Buspar) 5 mg PO BID [facility] Last Admin: 12/06/19 21:59 Dose: 5 mg Documented by: Clonidine (Catapres) 0.1 mg PO Q8H PRN PRN PRN Reason: RESTLESSNESS Last Admin: 12/06/19 20:01 Dose: 0.1 mg Documented by: Dicyclomine HCl (Bentyl) 20 mg PO Q6H PRN PRN PRN Reason: Abdominal Discomfort Last Admin: 12/05/19 05:38 Dose: 20 mg Documented by: Doxycycline Monohydrate (Doxycycline) 100 mg PO BID [facility] Last Admin: 12/06/19 18:12 Dose: 100 mg Documented by: Gabapentin (Neurontin) 300 mg PO Q8H PRN PRN PRN Reason: moderate to severe anxiety Last Admin: 12/07/19 02:30 Dose: 300 mg Documented by: Hydroxyzine Pamoate (Vistaril Pamoate Capsule) 50 mg PO Q6H PRN PRN PRN Reason: mild anxiety Last Admin: 12/04/19 18:08 Dose: 50 mg Documented by: Loperamide HCl (Imodium) 2 mg PO Q4H PRN PRN PRN Reason: LOOSE STOOLS Methocarbamol (Methocarbamol) 1,500 mg PO Q6H PRN PRN PRN Reason: MUSCLE SPASM Last Admin: 12/06/19 21:59 Dose: 1,500 mg Documented by: Nicotine (Nicoderm Cq (Pbkc)) 21 mg TRANSDERM. DAILY [facility] Last Admin: 12/06/19 09:56 Dose: 21 mg Documented by: Nutritional Formula (Lactose Free) (Ensure Enlive) 120 ml PO 4X/DAY [facility] Last Admin: 12/06/19 21:53 Dose: Not Given Documented by: Ondansetron HCl (Zofran) 8 mg PO Q8H PRN PRN PRN Reason: NAUSEA Last Admin: 12/05/19 20:23 Dose: 8 mg Documented by: Quetiapine Fumarate (Seroquel) 25 mg PO QHS [facility] Last Admin: 12/06/19 22:02 Dose: 25 mg Documented by: Senna (Senokot) 2 tablet PO QHS PRN PRN PRN Reason: Constipation Topiramate (Topamax) 50 mg PO BID [facility] Last Admin: 12/06/19 21:59 Dose: 50 mg Documented by: Trazodone HCl (Desyrel) 150 mg PO QHS [facility] Last Admin: 12/06/19 22:00 Dose: 150 mg Documented by: Venlafaxine HCl (Effexor Xr) 37.5 mg PO BID [facility] Last Admin: 12/06/19 22:00 Dose: 37.5 mg Documented by: Medical Necessity - Tobacco Use Smoking Status: Current every day smoker Tobacco Use: Cigarettes Assessment/Plan All Active Problems Opiate withdrawal (Acute) Skin ulcer (Acute) Patient is a 44-year-old lady presented with acute opioid withdrawal 1. Acute opioid withdrawal Admitted for medical stabilization using Subutex in addition to symptomatic treatment -12/05/2019 patient remains significantly symptomatic. Currently on Subutex in addition to supportive medications for symptom management. ?12/06/2019: Patient tolerating the Subutex protocol for her acute opioid withdrawal -12/07/2019 patient seen continues to improve. Plan is for patient to be discharged on 12/08/2019 with referral to [facility] as outpatient 2. Skin infection ?From the site of patient's IV drug injection patient started on doxycycline p.o. 3. Tobacco dependence - Counseled on cessation, offered nicotine patch for tobacco cravings 4. DVT prophylaxis ?Low risk did encourage ambulation Inpatient E&M: 64095 [facility] Hosp L2
[2019-12-07 08:44] VITALS: BP 119/69; PULSE 70; RESP 16; TEMP 36.7; O2SAT 97
[2019-12-07] MEDS: Doxycycline 100 MG CAPSULE PO ×2 (08:54→21:15)
[2019-12-07] MEDS: busPIRone 5 MG Tablet PO ×2 (08:54→21:15)
[2019-12-07] MEDS: Topiramate 50 MG Tablet PO ×2 (08:54→21:15)
[2019-12-07] MEDS: Venlafaxine XR 37.5 MG Capsule PO ×2 (08:54→21:14)
[2019-12-07 13:41] VITALS: BP 104/75; PULSE 77; RESP 16; TEMP 36.4; O2SAT 98
[2019-12-07 21:05] VITALS: BP 93/68; PULSE 69; RESP 16; TEMP 36.8; O2SAT 97
[2019-12-07] MEDS: Acetaminophen 500 MG Tablet PO (21:14)
[2019-12-07] MEDS: traZODone 100 MG Tablet 150 MG PO (21:15)
[2019-12-07] MEDS: QUEtiapine 25 MG Tablet PO (21:15)
[2019-12-08 02:49] VITALS: BP 99/70; PULSE 71; RESP 16; TEMP 36.6; O2SAT 96
[2019-12-08 09:01] VITALS: BP 131/83; PULSE 82; RESP 18; TEMP 36.5; O2SAT 100
[2019-12-08] MEDS: Venlafaxine XR 37.5 MG Capsule PO (09:02)
[2019-12-08] MEDS: Topiramate 50 MG Tablet PO (09:03)
[2019-12-08] MEDS: Doxycycline 100 MG CAPSULE PO (09:03)
[2019-12-08] MEDS: busPIRone 5 MG Tablet PO (09:03)
[2019-12-08] MEDS: Acetaminophen 500 MG Tablet PO (09:14)
--- NOTE | 2019-12-08 09:29 | DCINST_ITS ---
- Discharge Diagnoses Current Active Problems: Current Active and Chronic Problems Opiate withdrawal (Acute) Reason(s) for Visit for Discharge Instructions: Acute opioid withdrawal You will use the following diet at home:: Regular Your food should be the consistency of: Regular Your liquids should be the consistency of: Regular/Thin Discharge Activity: Return to Normal Activity Call your doctor if your incision/area has: Sudden Increased Bleeding, Increased Pain/ Swelling, Increased Redness, Foul Smelling Discharge, Swelling at the incision site Call your doctor if you observe: Fever of 101 or Higher, Numbness or Tingling Change Dressing in (Days):: 1 - daily Cleanse incision/area with: Normal Saline, Keep Dressing Clean & Dry Additional Instructions: You was strongly advised to quit smoking and stop using heroin. Follow-up with outpatient drug rehab program as planned. Complete your antibiotics. Continue to pack heel left thigh wound daily with saline soaked gauze. Follow-up with the wound center within 2 to 3 days as discussed. She will primary care doctor in 1 to 2 weeks. Allergies/Adverse Reactions: Allergies ibuprofen Allergy (Verified 12/04/19 10:43) Hives morphine Allergy (Verified 12/04/19 10:43) Hives Medications to take at Discharge Albuterol IH (ProAir) [Proair Hfa] 1 - 2 puff INHALATION Q6H PRN PRN 12/04/19 Mometasone/Formoterol [Dulera 100 Mcg/5 Mcg Inhaler] 1 puff IH DAILY 12/04/19 Topiramate 50 mg PO BID 12/04/19 Trazodone HCl 150 mg PO QHS 12/04/19 cycloBENZAPRine HCl [Flexeril] 10 mg PO TID PRN 12/04/19 Doxycycline 100 mg PO BID 3 Days #6 cap 12/08/19 Quetiapine Fumarate [Seroquel] 25 mg PO QHS 30 Days #30 tab 12/08/19 Venlafaxine HCl [Effexor Xr] 37.5 mg PO BID 30 Days #60 tab 12/08/19 busPIRone [Buspar] 5 mg PO BID 30 Days #30 tab 12/08/19 traZODone [Desyrel] 150 mg PO QHS 30 Days #30 tab 12/08/19 The following prescriptions were given: busPIRone [Buspar] 5 mg PO BID 30 Days #30 tab Transmission Status: Pending to [place], [place] traZODone [Desyrel] 150 mg PO QHS 30 Days #30 tab Transmission Status: Pending to [place] Doxycycline 100 mg PO BID 3 Days #6 cap Transmission Status: Pending to [place] Venlafaxine HCl [Effexor Xr] 37.5 mg PO BID 30 Days #60 tab Transmission Status: Pending to [place], [place] Quetiapine Fumarate [Seroquel] 25 mg PO QHS 30 Days #30 tab Transmission Status: Pending to [place], [place] Primary Care Physician: Care Physician,No Primary [Primary Care Provider] - Please follow up with your Primary Care Physician in: within 1-2 weeks Test Results: Test results from this visit will be discussed in further detail at your follow- up appointment, if applicable. Proposed Discharge Date: 12/08/19
--- NOTE | 2019-12-08 09:32 | PCM.DC.SUM ---
Discharge Date and Diagnosis Date of Admission: 12/04/19 Date of Discharge: 12/08/19 - Primary Discharge Diagnosis Acute Problems: Active Problems Opiate withdrawal (Acute) Left lateral thigh ulcer, cellulitis, present on admission Nicotine dependence Hospital Course and Treatment None Operations: None Procedures: None Summary of Care Provided: The patient is a 44 year old F with past medical history of chronic fentanyl use who comes in with complaints of nausea, vomiting, abdominal cramps and neck pain. Patient had multiple skin lesions following ingestion of fentanyl. Admitted to the [facility] and managed on Subutex withdrawal protocol. She was also started on doxycycline for left thigh ulcer. Wound dressing and packing were also done. Patient was counseled on tobacco cessation and put on nicotine replacement. Continue to improve and was discharged to follow-up with outpatient drug rehab in [place]. She knows to follow-up with her wound clinic in a couple of days. She will complete 1 week of doxycycline. Subjective: On the day of discharge, patient was seen and examined. Denied any new complains. - Physical Exam Vitals/I&O's: Vital Signs Temp Pulse Resp BP Pulse Ox 97.7 F L 82 18 131/83 H 100 12/08/19 09:01 12/08/19 09:01 12/08/19 09:01 12/08/19 09:01 12/08/19 09:01 Oxygen Delivery Method Room Air Weight: 68.311 kg Body Mass Index (BMI) 25.8 Intake and Output for Last 24 Hours 12/06/19 12/07/19 12/08/19 23:59 23:59 23:59 Intake Total 900 / 900 1000 / 1000 800 / 800 Balance 900 / 900 1000 / 1000 800 / 800 General: Alert, Oriented x3, Cooperative, No apparent distress HEENT: Atraumatic, PERRLA, EOMI, Normocephalic Oral: Moist Mucosa Neck: Supple Lungs: Clear to auscultation, Normal air movement Cardiovascular: Regular rate, Regular Rhythm, Normal S1, Normal S2 Abdomen: Bowel Sounds Present, Soft, Non Tender, Non-Distended, No Hepato-splenomegaly Extremities: No edema, - - Left lateral thigh, 5cm x 5cm, granulation tissue at wound base, no discharge, gauze packing in place Skin: No rashes, No breakdown Musculoskeletal: No Tenderness to Palpation of Joints or Extremities Lymphatic: No Cervical, Supraclavicular, or Inguinal Adenopathy Neurological: Cranial nerves II-XII grossly intact Psych/Mental Status: Normal Affect, Appropriate Current Medications Acetaminophen (Tylenol) 500 mg PO Q4H PRN PRN PRN Reason: Temp > 100.4 F Last Admin: 12/08/19 09:14 Dose: 500 mg Documented by: Al Hydroxide/Mg Hydroxide (Mylanta Ii) 30 ml PO Q6H PRN PRN PRN Reason: dyspesia Albuterol Sulfate (Ventolin Aerosols) 2.5 mg INHALATION Q6HWA.RT [facility] Last Admin: 12/08/19 07:15 Dose: Not Given Documented by: Bisacodyl (Dulcolax) 10 mg RECTAL DAILY PRN PRN Reason: Constipation Budesonide (Pulmicort Aerosol) 0.5 mg INHALATION Q12H.RT [facility] Last Admin: 12/08/19 07:15 Dose: Not Given Documented by: Buspirone HCl (Buspar) 5 mg PO BID [facility] Last Admin: 12/08/19 09:03 Dose: 5 mg Documented by: Clonidine (Catapres) 0.1 mg PO Q8H PRN PRN PRN Reason: RESTLESSNESS Last Admin: 12/06/19 20:01 Dose: 0.1 mg Documented by: Dicyclomine HCl (Bentyl) 20 mg PO Q6H PRN PRN PRN Reason: Abdominal Discomfort Last Admin: 12/05/19 05:38 Dose: 20 mg Documented by: Doxycycline Monohydrate (Doxycycline) 100 mg PO BID [facility] Last Admin: 12/08/19 09:03 Dose: 100 mg Documented by: Gabapentin (Neurontin) 300 mg PO Q8H PRN PRN PRN Reason: moderate to severe anxiety Last Admin: 12/07/19 15:27 Dose: 300 mg Documented by: Hydroxyzine Pamoate (Vistaril Pamoate Capsule) 50 mg PO Q6H PRN PRN PRN Reason: mild anxiety Last Admin: 12/04/19 18:08 Dose: 50 mg Documented by: Loperamide HCl (Imodium) 2 mg PO Q4H PRN PRN PRN Reason: LOOSE STOOLS Methocarbamol (Methocarbamol) 1,500 mg PO Q6H PRN PRN PRN Reason: MUSCLE SPASM Last Admin: 12/06/19 21:59 Dose: 1,500 mg Documented by: Nicotine (Nicoderm Cq (Pbkc)) 21 mg TRANSDERM. DAILY [facility] Last Admin: 12/08/19 09:07 Dose: Not Given Documented by: Nutritional Formula (Lactose Free) (Ensure Enlive) 120 ml PO 4X/DAY [facility] Last Admin: 12/08/19 09:07 Dose: Not Given Documented by: Ondansetron HCl (Zofran) 8 mg PO Q8H PRN PRN PRN Reason: NAUSEA Last Admin: 12/05/19 20:23 Dose: 8 mg Documented by: Quetiapine Fumarate (Seroquel) 25 mg PO QHS [facility] Last Admin: 12/07/19 21:15 Dose: 25 mg Documented by: Senna (Senokot) 2 tablet PO QHS PRN PRN PRN Reason: Constipation Topiramate (Topamax) 50 mg PO BID [facility] Last Admin: 12/08/19 09:03 Dose: 50 mg Documented by: Trazodone HCl (Desyrel) 150 mg PO QHS [facility] Last Admin: 12/07/19 21:15 Dose: 150 mg Documented by: Venlafaxine HCl (Effexor Xr) 37.5 mg PO BID [facility] Last Admin: 12/08/19 09:02 Dose: 37.5 mg Documented by: Discharge Diet: No Restrictions Discharge Activity: Return to Normal Activity Call your doctor if your incision/area has: Sudden Increased Bleeding, Increased Pain/ Swelling, Increased Redness, Foul Smelling Discharge, Swelling at the incision site Call your doctor if you observe: Fever of 101 or Higher, Numbness or Tingling Change Dressing in (Days):: 1 - daily Cleanse incision/area with: Normal Saline, Keep Dressing Clean & Dry Home Medications: Medications to take at Discharge Albuterol IH (ProAir) [Proair Hfa] 1 - 2 puff INHALATION Q6H PRN PRN 12/04/19 Mometasone/Formoterol [Dulera 100 Mcg/5 Mcg Inhaler] 1 puff IH DAILY 12/04/19 Topiramate 50 mg PO BID 12/04/19 Trazodone HCl 150 mg PO QHS 12/04/19 cycloBENZAPRine HCl [Flexeril] 10 mg PO TID PRN 07/16/20 Doxycycline 100 mg PO BID 3 Days #6 cap 12/08/19 Quetiapine Fumarate [Seroquel] 25 mg PO QHS 30 Days #30 tab 12/08/19 Venlafaxine HCl [Effexor Xr] 37.5 mg PO BID 30 Days #60 tab 12/08/19 busPIRone [Buspar] 5 mg PO BID 30 Days #30 tab 12/08/19 traZODone [Desyrel] 150 mg PO QHS 30 Days #30 tab 12/08/19 Following Prescrptions Were Given to Patient: busPIRone [Buspar] 5 mg PO BID 30 Days #30 tab Transmission Status: Received by [place] traZODone [Desyrel] 150 mg PO QHS 30 Days #30 tab Transmission Status: Received by [place] Doxycycline 100 mg PO BID 3 Days #6 cap Transmission Status: Received by [place] Venlafaxine HCl [Effexor Xr] 37.5 mg PO BID 30 Days #60 tab Transmission Status: Received by [place] Quetiapine Fumarate [Seroquel] 25 mg PO QHS 30 Days #30 tab Transmission Status: Received by [place] Primary Care Physician: Care Physician,No Primary [Primary Care Provider] - Please follow up with your Primary Care Physician in: within 1-2 weeks Disposition: Home Minutes spent on discharge:: 35 Patient Condition:: Stable Medical Necessity - Tobacco Use Smoking Status: Current every day smoker Tobacco Use: Cigarettes Meaningful Use Info Meaningful Use Diagnoses (Choose all that apply): None applicable Inpatient E&M: 768[address] [facility]
--- NOTE | 2019-12-08 10:46 | PHA.DC.MC ---
Pharmacy Service has performed discharge medication reconciliation and counseling for this patient. The patient was counseled on the following discharge medications and changes in medications for homegoing were reviewed. 1. DOXYCYCLINE: 100MG PO BID The Reason for Use, instructions for use, and potential side effects were reviewed for all new medications. The patient's questions regarding all of their medications were answered. The patient was able to verbally demonstrate an understanding of their discharge medications. Home Medications Albuterol IH (ProAir) [Proair Hfa] 1 - 2 puff INHALATION Q6H PRN PRN 12/04/19 Mometasone/Formoterol [Dulera 100 Mcg/5 Mcg Inhaler] 1 puff IH DAILY 12/04/19 Topiramate 50 mg PO BID 12/04/19 Trazodone HCl 150 mg PO QHS 12/04/19 cycloBENZAPRine HCl [Flexeril] 10 mg PO TID PRN 12/04/19 Doxycycline 100 mg PO BID 3 Days #6 cap 12/08/19 Quetiapine Fumarate [Seroquel] 25 mg PO QHS 30 Days #30 tab 12/08/19 Venlafaxine HCl [Effexor Xr] 37.5 mg PO BID 30 Days #60 tab 12/08/19 busPIRone [Buspar] 5 mg PO BID 30 Days #30 tab 12/08/19 traZODone [Desyrel] 150 mg PO QHS 30 Days #30 tab 12/08/19 The patient's discharge medication list was reviewed for discrepancies and discrepancies were resolved.
== END 2019-12-08 10:31 | disposition home or self-care (01) ==
LOC: ED 12:56 → MS3 12-05 07:34
PROVIDERS: Admitting Provider Internal Medicine; Emergency Provider Emergency Medicine; Visit Provider Internal Medicine
DX: F11.23 Opioid dependence with withdrawal (principal); F17.210 Nicotine dependence, cigarettes, uncomplicated; L08.9 Local infection of the skin and subcutaneous tissue, unspecified; L97.129 Non-pressure chronic ulcer of left thigh with unspecified severity
CPT/HCPCS: 80053; 80307; 80320; 84443; 85025; 93005; 99283; H0012; G0480